=== PATIENT | male | born 1930 | race Caucasian/White ===

== ENCOUNTER → 2016-08-08 | Outpatient (CLI) | payer MEDICARE ==
[~2016-08-08] VITALS: Ht 170.2 cm; Wt 90.0 kg
[~2016-08-08] MED LIST: PROPOFOL 200 MG/20 ML AMP IV ONE; PROT40TA PO
[2016-08-08 06:55] VITALS: BP 113/68; PULSE 92; RESP 18; TEMP 98.2; O2SAT 96
--- NOTE | 2016-08-08 07:59 | GIPROC ---
[facility] [address] [place] [address], [id number] EGD PROCEDURE REPORT EXAM DATE: 08/08/2016 PATIENT NAME: Leo Harper MR #: [id number] BIRTHDATE: 1930 ATTENDING: Ministerio Aleman MD ORDER #: [id number] PAYROLL MANAGER: Troy Sprague and Ellie Clements STATUS: outpatient INDICATIONS: The patient is a 86 yr old male here for an EGD due to anemia PROCEDURE PERFORMED: EGD w/ biopsy MEDICATIONS: None and Per Anesthesia. TOPICAL ANESTHETIC: none CONSENT: The patient understands the risks and benefits of the procedure and understands that these risks include, but are not limited to: sedation, allergic reaction, infection, perforation and/or bleeding. Alternative means of evaluation and treatment include, among others: physical exam, x-rays, and/or surgical intervention. The patient elects to proceed with this endoscopic procedure. medical equipment was checked for proper function. Hand hygiene and appropriate measures for infection prevention was taken. After the risks, benefits and alternatives of the procedure were thoroughly explained, Informed consent was verified, confirmed and timeout was successfully executed by the treatment team. The patient was anesthetized with topical anesthesia and the EC-3490Li (Pedi C) endoscope was introduced through the mouth and advanced to the second portion of the duodenum. Retroflexed views revealed sever gastropathy and gastritis Bx done The gastroscope was then slowly withdrawn and removed. Sever duodenitis Bx done. ADVERSE EVENTS: There were no complications. IMPRESSIONS: 1. Sever duodenitis Bx done 2. Retroflexed views revealed sever gastropathy and gastritis Bx done RECOMMENDATIONS: 1. Await biopsy results. Biopsy results will not be ready for 7-10 days. If you don't hear from us in two weeks, call our office for biopsy results. 2. Anti-reflux regimen 3. Avoid NSAIDS 4. Protonix 40 mg po QD RTC in 2 wks PATIENT CONDITION: stable DISPOSITION: Home REPEAT EXAM: Return as needed for EGD Ministerio Aleman MD eSigned: Ministerio Aleman MD 08/08/2016 7:58 AM cc:
--- NOTE | 2016-08-08 08:07 | GIPROC ---
[facility] [address] [place] [address], [id number] COLONOSCOPY PROCEDURE REPORT EXAM DATE: 08/08/2016 PATIENT NAME: Leo Harper MR #: [id number] BIRTHDATE: 1930 ENDOSCOPIST: Ministerio Aleman MD ORDER #: [id number] PRODUCT EXPERT: Troy Sprague and Ellie Clements STATUS: outpatient INDICATIONS: The patient is a 86 yr old male here for a colonoscopy due to anemia, non-specific PROCEDURE PERFORMED: Colonoscopy, diagnostic MEDICATIONS: None and Per Anesthesia. PREP QUALITY: fair ESTIMATED BLOOD LOSS: None CONSENT: The patient understands the risks and benefits of the procedure and understands that these risks include, but are not limited to: sedation, allergic reaction, infection, perforation and/or bleeding. Alternative means of evaluation and treatment include, among others: physical exam, x-rays, and/or surgical intervention. The patient elects to proceed with this endoscopic procedure. medical equipment was checked for proper function. Hand hygiene and appropriate measures for infection prevention was taken. After the risks, benefits and alternatives of the procedure were thoroughly explained, Informed consent was verified, confirmed and timeout was successfully executed by the treatment team. 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 The instrument was then slowly withdrawn as the colon was fully examined. COLON FINDINGS: Severe diverticulosis was noted throughout the entire examined colon. Some stool throughout the colon. Retroflexed views revealed no abnormalities The scope was then completely withdrawn from the patient and the procedure terminated. ADVERSE EVENTS: There were no complications. IMPRESSIONS: 1. Severe diverticulosis was noted throughout the entire examined colon 2. Some stool throughout the colon 3. Retroflexed views revealed no abnormalities 4. Revealed no abnormalities of the rectum 5. 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 Yearly hemoccult 2. High fiber diet 3. Surgical consult today RECALL: Ministerio Aleman MD eSigned: Ministerio Aleman MD 08/08/2016 8:07 AM cc:
[2016-08-08 08:50] VITALS: BP 98/65
[2016-08-08 09:10] VITALS: PULSE 66; RESP 20; TEMP 98; O2SAT 92
== END ==
LOC: PHSDC 06:08 → EDUNIT# 07:00
PROVIDERS: ATTEND Hospitalist
DX: K29.80 Duodenitis without bleeding (principal); K29.50 Unspecified chronic gastritis without bleeding; K57.30 Diverticulosis of large intestine without perforation or abscess without bleeding; R93.3 Abnormal findings on diagnostic imaging of other parts of digestive tract; D64.9 Anemia, unspecified; I10 Essential (primary) hypertension; Z95.0 Presence of cardiac pacemaker
CPT/HCPCS: 88305; 88312